=== PATIENT | female | born 1965 | race Caucasian/White ===

== ENCOUNTER 2016-10-07 10:53 | Emergency (ER) | payer OTHER ==
[2016-10-07 11:01] VITALS: BMI 23.0
[2016-10-07 11:42] LABS: BASOPHIL 0.9 % (0-2.0); EOSINOPHIL 0.7 % (0-4.5); MCH 30.5 pg (25.7-33.7); MCHC 34.3 g/dl (32.0-36.0); MEAN CELL VOLUME 88.8 fl (80-96); MEAN PLT VOLUME 8.3 fl (7.5-11.1); NEUTROPHILS 66.3 % (42.8-82.8); PLATELET COUNT 232 K/MM3 (134-434); WHITE BLOOD COUNT 8.6 K/mm3 (4.0-10.0)
[2016-10-07] MEDS ORDERED: MECLIZINE HCL 25 MG TABLET (FP) PO ONE (11:56)
[2016-10-07] MEDS ORDERED: SODIUM CHLORIDE 1,000 ML IV STA (11:57)
--- NOTE | 2016-10-07 11:57 | PDOC ---
History of Present Illness - General History Source: Patient - History of Present Illness Associated Symptoms: reports: headaches. denies: chest pain, fever/chills, nausea/vomiting, shortness of breath, weakness <Nadja Nelson - Last Filed: 10/07/16 13:18> <Jocelyn Manuel - Last Filed: 10/07/16 14:16> - General Chief Complaint: Lightheaded Stated Complaint: FATIGUE/DIZZY Time Seen by Provider: 10/07/16 11:14 Past History - Past Medical History Anemia: No Asthma: No Cancer: No Cardiac Disorders: No CVA: No COPD: No CHF: No Dementia: No Diabetes: Yes (BORDERLINE) GI Disorders: No Disorders: No HTN: No Hypercholesterolemia: No Liver Disease: No Seizures: No Thyroid Disease: No - Surgical History Abdominal Surgery: No Appendectomy: No Cardiac Surgery: No Cholecystectomy: No Lung Surgery: No Neurologic Surgery: No Orthopedic Surgery: No - Immunization History Immunization Up to Date: Yes - Psycho/Social/Smoking Cessation Hx Anxiety: No Suicidal Ideation: No Smoking History: Never smoked Have you smoked in the past 12 months: No Number of Cigarettes Smoked Daily: 0 If you are a former smoker, when did you quit?: 0 Cigars Per Day: 0 Hx Alcohol Use: No Drug/Substance Use Hx: No Substance Use Type: None Hx Substance Use Treatment: No <Nadja Nelson - Last Filed: 10/07/16 13:18> <Jocelyn Manuel - Last Filed: 10/07/16 14:16> - Past Medical History Allergies/Adverse Reactions: Allergies Allergy/AdvReac Type Severity Reaction Status Date / Time No Known Drug Allergies Allergy Verified 10/07/16 11:00 Home Medications: Ambulatory Orders Meclizine HCl [Antivert -] 25 mg PO ASDIR #30 tablet 10/07/16 Metformin HCl [Glucophage] 250 mg PO BID 10/07/16 Review of Systems - Review of Systems Constitutional: No: Chills, Fever Respiratory: No: Shortness of Breath Cardiac (ROS): No: Chest Pain, Lightheadedness Neurological: Yes: Headache, Dizziness. No: Numbness, Tingling, Weakness <Nadja Nelson - Last Filed: 10/07/16 13:18> *Physical Exam - Vital Signs Last Vital Signs Temp Pulse Resp BP Pulse Ox 98.0 F 68 20 123/75 99 10/07/16 10:59 10/07/16 10:59 10/07/16 10:59 10/07/16 10:59 10/07/16 10:59 - Physical Exam General Appearance: Yes: Appropriately Dressed. No: Apparent Distress HEENT: positive: Normal Voice Neck: positive: Supple Respiratory/Chest: positive: Lungs Clear, Normal Breath Sounds. negative: Respiratory Distress Cardiovascular: positive: Regular Rate, S1, S2 Gastrointestinal/Abdominal: positive: Soft. negative: Tender Extremity: positive: Normal Inspection Integumentary: positive: Dry, Warm Neurologic: positive: Fully Oriented, Alert, Normal Mood/Affect, Motor Strength 5/5, Finger to Nose. negative: Facial Droop, Disoriented (No nystagmus, Joel intact, no drift, minimal ataxia) <Nadja Nelson - Last Filed: 10/07/16 13:18> - Vital Signs Last Vital Signs Temp Pulse Resp BP Pulse Ox 97.3 F L 62 18 116/78 100 10/07/16 13:27 10/07/16 13:27 10/07/16 13:27 10/07/16 13:27 10/07/16 13:27 <Jocelyn Manuel - Last Filed: 10/07/16 14:16> Heart Score/ECG Review - ECG Intrepretation Comment:: 10/07/16 12:51 Twelve-lead EKG was performed and reviewed by me. There is normal sinus rhythm with a normal rate. The axis is normal. The intervals are normal. There are no ST or T wave abnormalities. Impression: Normal twelve-lead EKG 10/07/16 12:51 <Nadja Nelson - Last Filed: 10/07/16 13:18> ED Treatment Course - LABORATORY CBC & Chemistry Diagram: 10/07/16 11:30 10/07/16 11:30 - ADDITIONAL ORDERS Additional order review: 10/07/16 11:30 RBC 4.60 MCV 88.8 MCHC 34.3 RDW 13.0 MPV 8.3 Neutrophils % 66.3 D Lymphocytes % 26.0 D Monocytes % 6.1 D Eosinophils % 0.7 D Basophils % 0.9 <Nadja Nelson - Last Filed: 10/07/16 13:18> - LABORATORY CBC & Chemistry Diagram: 10/07/16 11:30 10/07/16 11:30 - ADDITIONAL ORDERS Additional order review: Laboratory Results 10/07/16 10/07/16 10/07/16 11:50 11:45 11:30 Sodium 140 Potassium 4.1 Chloride 106 Carbon Dioxide 24 Anion Gap 10 BUN 12 D Creatinine 0.6 D Creat Clearance w eGFR > 60 Random Glucose 96 D Calcium 8.7 Total Bilirubin 0.5 AST 16 D ALT 16 D Alkaline Phosphatase 60 D Creatine Kinase 63 Troponin I < 0.02 Total Protein 7.2 Albumin 3.7 Urine Color Ltyellow Urine Appearance Clear Urine pH 7.0 Urine Protein Negative Urine Glucose (UA) Negative Urine Ketones Negative Urine Blood Negative Urine Nitrite Negative Urine Bilirubin Negative Urine Urobilinogen Negative Ur Leukocyte Esterase Negative Urine HCG, Qual Negative 10/07/16 11:30 RBC 4.60 MCV 88.8 MCHC 34.3 RDW 13.0 MPV 8.3 Neutrophils % 66.3 D Lymphocytes % 26.0 D Monocytes % 6.1 D Eosinophils % 0.7 D Basophils % 0.9 - Medications Given in the ED: ED Medications Discontinued Medications Generic Name Dose Route Start Last Admin Trade Name Freq PRN Reason Stop Dose Admin Sodium Chloride 1,000 mls @ 1,000 mls/hr 10/07/16 11:57 10/07/16 12:10 Normal Saline - IV 10/07/16 12:56 1,000 mls/hr ASDIR STA Administration Meclizine HCl 25 mg 10/07/16 11:56 10/07/16 12:10 Antivert - PO 10/07/16 11:57 25 mg ONCE ONE Administration <Jocelyn Manuel - Last Filed: 10/07/16 14:16> Medical Decision Making - Medical Decision Making 10/07/16 11:51 51-year-old female, history of renal stone, diabetes, here with sensation of the room spinning that started this am when she woke up. States symptoms are persistent regardless of position and that when she walks she feels "off balance ". Also report a frontal headache this am that has since improved. No visual changes, nausea, vomiting, slurred speech, focal weakness, chest pain or shortness of breath. No history of similar symptoms. No recent URI. No new medications. See exam New onset vertigo No uri sxs No new meds Stable w/ no focal deficits on exam but w/ some ataxia ?cerebellar source vs peripheral -CTH w/ possible MRI and neuro consult if no improvement w/ meds -trial of meclizine/IVF -labs -reassess 10/07/16 11:57 10/07/16 12:01 10/07/16 13:18 10/07/16 13:[address] negative. Patient reports feeling significantly better with meclizine and now able to ambulate without any difficulty on reassessment will dc with meclizine as needed and neuro follow-up. Case discussed with Dr. Manuel who agrees with disposition 10/07/16 13:24 10/07/16 13:24 <Nadja Nelson - Last Filed: 10/07/16 13:18> *DC/Admit/Observation/Transfer <Nadja Nelson - Last Filed: 10/07/16 13:18> - Attestations Physician Attestion: I reviewed the case with the mid-level practitioner and agree with the mid- level practitioner's assessment, diagnosis and disposition. <Joeclyn Manuel - Last Filed: 10/07/16 14:16> Diagnosis at time of Disposition: Vertigo - Discharge Dispostion Disposition: HOME Condition at time of disposition: Improved - Prescriptions Prescriptions: Meclizine HCl [Antivert -] 25 mg PO ASDIR #30 tablet - Referrals Referrals: Alicja Keating MD [Primary Care Provider] - Kali Jovel MD [Staff Physician] - - Patient Instructions Printed Discharge Instructions: Vertigo Additional Instructions: Take meclizine as needed for dizziness. Return to ER for worsening of symptoms. Follow-up with Dr. Jovel of neurology in one week - Post Discharge Activity Work/School Note: Back to Work
[2016-10-07 12:01] LABS: URINE APPEARANCE CLEAR; URINE BILIRUBIN NEGATIVE (NEGATIVE); URINE BLOOD NEGATIVE (NEGATIVE); URINE COLOR LTYELLOW; URINE GLUCOSE (UA) NEGATIVE (NEGATIVE); URINE KETONE NEGATIVE (NEGATIVE); URINE LEUK ESTERASE NEGATIVE (NEGATIVE); URINE NITRITE NEGATIVE (NEGATIVE); URINE PROTEIN NEGATIVE (NEGATIVE); URINE UROBILINOGEN NEGATIVE E.U./dl (0.2-1.0)
[2016-10-07] MEDS ORDERED: MECLIZINE HCL 25 MG TABLET (FP) ONE (12:02)
[2016-10-07 12:15] LABS: ALBUMIN 3.7 g/dl (3.4-5.0); ANION GAP 10 (8-16); CALCIUM 8.7 mg/dL (8.5-10.1); CO2 24 mmol/L (21-32); GLUCOSE,RANDOM 96 mg/dL (74-106)
[2016-10-07 12:23] LABS: ALK PHOS 60 U/L (45-117); BILIRUBIN,TOTAL 0.5 mg/dL (0.2-1.0); CREATININE 0.6 mg/dL (0.55-1.02); SGOT/AST 16 U/L (15-37); SGPT/ALT 16 U/L (12-78); TOT PROT 7.2 g/dl (6.4-8.2); TROPONIN I < 0.02 ng/ml (0.00-0.05)
[2016-10-07 13:28] VITALS: BP 116/78; PULSE 62; TEMP 97.3
--- NOTE | 2016-10-08 14:21 | EKG ---
Test Reason : Blood Pressure : / mmHG Vent. Rate : 062 BPM Atrial Rate : 062 BPM P-R Int : 146 ms QRS Dur : 082 ms QT Int : 398 ms P-R-T Axes : 076 076 069 degrees QTc Int : 403 ms NORMAL SINUS RHYTHM NORMAL ECG WHEN COMPARED WITH ECG OF 18-JUL-2015 09:46, NO SIGNIFICANT CHANGE WAS FOUND Confirmed by TOR YANES MD ([id number]) on 10/08/2016 2:21:19 PM Referred By: Confirmed By:TOR YANES MD
== END 2016-10-07 13:36 | disposition home or self-care (01) ==
LOC: JER 10:53
PROC: 3E0337Z Introduction of Electrolytic and Water Balance Substance into Peripheral Vein, Percutaneous Approach (ICD-10-PCS; principal; 2016-10-07)
DX: R42 Dizziness and giddiness (principal); E11.9 Type 2 diabetes mellitus without complications; Z79.84 Long term (current) use of oral hypoglycemic drugs
CPT/HCPCS: 36415; 70450-TC; 80053; 81003; 82550; 84484; 84703; 85025; 93005; 93010; 96360; 99283-25

== ENCOUNTER 2019-03-26 17:01 | Emergency (ER) | payer OTHER ==
[2019-03-26 17:04] VITALS: BP 145/94; PULSE 74; TEMP 98.8; BMI 26.6
[2019-03-26] MEDS ORDERED: LIDOCAINE HCL 1%, 10 MG/ML (50 mL VIAL) SQ ONE (17:32)
[2019-03-26] MEDS ORDERED: LIDOCAINE HCL 1%, 10 MG/ML (20ML VIAL) ONE (17:33)
--- NOTE | 2019-03-26 17:36 | PDOC ---
History of Present Illness - General Chief Complaint: Pain, Acute Stated Complaint: LEFT LOWER BACK PAIN Time Seen by Provider: 03/26/19 17:11 - History of Present Illness Initial Comments: 03/26/19 17:33 53 F with borderline DM presenting to ED with 2 days of L lower back pain. 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 Denies any falls or trauma. States that the pain is localized to her L lower back and does not radiate down her leg. No leg weakness/numbness. No incontinence. Past History - Past Medical History Allergies/Adverse Reactions: Allergies Allergy/AdvReac Type Severity Reaction Status Date / Time No Known Drug Allergies Allergy Verified 03/26/19 17:01 Home Medications: Ambulatory Orders metFORMIN HCL [Metformin HCl] 500 mg PO ASDIR 01/25/18 Anemia: No Asthma: No Cancer: No Cardiac Disorders: No CVA: No COPD: No CHF: No Dementia: No Diabetes: Yes (TYPE 2) GI Disorders: No Disorders: Yes (EDNDOMETRIAL POLYPS) HTN: No Hypercholesterolemia: No Kidney Stones: Yes Liver Disease: No Seizures: No Thyroid Disease: No - Surgical History Abdominal Surgery: No Appendectomy: No Cardiac Surgery: No Cholecystectomy: No Lung Surgery: No Neurologic Surgery: No Orthopedic Surgery: No - Immunization History Immunization Up to Date: Yes - Psycho Social/Smoking Cessation Hx Smoking History: Never smoked Have you smoked in the past 12 months: No Number of Cigarettes Smoked Daily: 0 If you are a former smoker, when did you quit?: 0 Cigars Per Day: 0 Hx Alcohol Use: No Drug/Substance Use Hx: No Substance Use Type: None Hx Substance Use Treatment: No Review of Systems - Review of Systems Comments:: 03/26/19 17:34 "GENERAL/CONSTITUTIONAL: No fever or chills. No weakness. HEAD, EYES, EARS, NOSE AND THROAT: No change in vision. No ear pain or discharge. No sore throat. CARDIOVASCULAR: No chest pain, no shortness of breath, no loss of consciousness RESPIRATORY: No cough, wheezing, or hemoptysis. GASTROINTESTINAL: No nausea, vomiting, diarrhea or constipation. GENITOURINARY: No dysuria, frequency, or change in urination. MUSCULOSKELETAL: + lower back pain, No joint or muscle swelling or pain. No neck pain. SKIN: No rash NEUROLOGIC: No vertigo, no change in strength/sensation. ENDOCRINE: No increased thirst. No abnormal weight change. HEMATOLOGIC/LYMPHATIC: No anemia, easy bleeding, or history of blood clots. ALLERGIC/IMMUNOLOGIC: No hives or skin allergy. *Physical Exam - Vital Signs Last Vital Signs Temp Pulse Resp BP Pulse Ox 98.8 F 74 18 145/94 100 03/26/19 17:01 03/26/19 17:01 03/26/19 17:01 03/26/19 17:01 03/26/19 17:01 - Physical Exam 03/26/19 17:34 "GENERAL: Awake, alert, and fully oriented, in no acute distress. HEAD: No signs of trauma EYES: PERRLA, EOMI, sclera anicteric, conjunctiva clear ENT: Auricles normal inspection, hearing grossly normal, nares patent, oropharynx clear without exudates. Moist mucosa NECK: Nontender, no stepoffs, Normal ROM, supple, no lymphadenopathy, JVD, or masses LUNGS: Breath sounds equal, clear to auscultation bilaterally. No wheezes, and no crackles HEART: Regular rate and rhythm, normal S1 and S2, no murmurs, rubs or gallops ABDOMEN: Soft, nontender, normoactive bowel sounds. No guarding, no rebound. No masses EXTREMITIES: Normal range of motion, no edema. No clubbing or cyanosis. No cords, erythema, or tenderness NEUROLOGICAL: Cranial nerves II through XII intact. 5/5 strength and sensation in all extremities, Normal speech, normal gait, normal cerebellar function SKIN: Warm, Dry, normal turgor, no rashes or lesions noted. BACK: + L lower back TTP with palpable muscle spasm, no midline tenderness, no stepoffs Medical Decision Making - Medical Decision Making 03/26/19 17:36 53 F with muscle spasm in her L lower back. No midline tenderness, no neuro deficits to suggest cord compression/cauda equina. Trigger point injection performed with injection of 10cc lidocaine 1% into muscle with successful release of spasm. Pt reports significant improvement in pain, now able to ambulate without any difficulty. Pt is well appearing, with normal vitals. Clinically stable for DC at this time. I discussed the physical exam findings, ancillary test results and final diagnoses with the patient. I answered all of the patient's questions. The patient was satisfied with the care received and felt comfortable with the discharge plan and treatment plan. The patient agrees to follow up with the primary care physician within 24-72 hours. Discharge - Discharge Information Problems reviewed: Yes Clinical Impression/Diagnosis: Muscle spasm, Lower back pain, Lumbar trigger point syndrome Condition: Stable Disposition: HOME - Follow up/Referral Referrals: Momo Kellogg DO [Staff Physician] - - Patient Discharge Instructions Patient Printed Discharge Instructions: DI for Trigger Point Injection Additional Instructions: Your pain is likely due to a muscle spasm in your lower back. Take motrin or aleve as needed for the pain. If you experience worsening pain, pain shooting down your leg, weakness or numbness in either leg, difficulty controlling your bowel or bladder, or any other concerning symptoms, return to the ER immediately. Otherwise, follow up with your primary care doctor within 72 hours. If your back pain becomes a recurrent issue, follow up with an orthopedic surgeon. Call the number provided to make an appointment. - Post Discharge Activity
== END 2019-03-26 18:09 | disposition home or self-care (01) ==
LOC: FER 17:01
DX: M54.5 Low back pain (principal); M62.830 Muscle spasm of back; E11.9 Type 2 diabetes mellitus without complications; N20.0 Calculus of kidney
CPT/HCPCS: 99282-25

== ENCOUNTER 2022-04-25 10:01 | Emergency (ER) | payer OTHER ==
[2022-04-25 10:20] VITALS: BP 125/76; PULSE 67; RESP 16; TEMP 98.2; BMI 26.6
[2022-04-25] MEDS ORDERED: IBUPROFEN 600 MG TABLET (FP) PO ONE ×2 (10:32→10:37)
== END 2022-04-25 11:33 | disposition home or self-care (01) ==
LOC: FER 10:01
DX: M25.572 Pain in left ankle and joints of left foot (principal)
CPT/HCPCS: 73610-TC-LT-FY; 99283-25